=== PATIENT | female | born 1970 | race Hispanic/Latino ===

== ENCOUNTER 2019-01-09 12:01 | Outpatient (CLI) | payer OTHER ==
--- NOTE | 2019-01-09 14:11 | XRay Report ---
LUMBOSACRAL SPINE, FIVE VIEWS: HISTORY: Radiculopathy lumbar region. Normal bone mineralization. There is mild levo curvature to the lumbar spine on the AP image. There is 3 mm retrolisthesis of L2 with respect to L3. There is 4 mm anterolisthesis of L4 with respect L5. This appears to be secondary to degenerative facet arthropathy at both levels. No pars defect is identified. No evidence for compression deformity or bone lesion. There is moderate hypertrophic facet arthropathy throughout the lumbar region. L2-3 and L4-5 are the most affected levels. Flexion and extension views of the lumbar spine demonstrate limited range of motion but no evidence for instability. IMPRESSION: Mild levoscoliosis of the lumbar spine. Multilevel degenerative changes as described. No evidence for instability.
== END 2019-01-09 12:02 | disposition home or self-care (01) ==
LOC: XRAY 12:01
PROVIDERS: ATTEND Physical Medicine & Rehabilitation Pain Medicine
DX: M41.86 Other forms of scoliosis, lumbar region (principal); M47.816 Spondylosis without myelopathy or radiculopathy, lumbar region
CPT/HCPCS: 72110

== ENCOUNTER 2019-06-18 13:46 | Outpatient (CLI) | payer OTHER ==
--- NOTE | 2019-06-18 14:55 | Magnetic Resonance Report ---
MRI LUMBAR SPINE WITHOUT CONTRAST INDICATION / CLINICAL INFORMATION: M54.16 LUMBAR RADICULOPATHY REGION. TECHNIQUE: Multisequence, multiplanar images of the lumbar spine were obtained. COMPARISON: None available. FINDINGS: ALIGNMENT: Normal lumbar lordosis without significant scoliosis. VERTEBRAE:Normal marrow signal and vertebral body height for age. DISC SPACES: There is mild diffuse disc desiccation and mild disc space narrowing at L2-3. FACET JOINTS. Mild to moderate diffuse facet arthropathy. L4-5 appears to be the most affected level. VISUALIZED SPINAL CORD: No significant abnormality. [id number] ANALYSIS: T12-L1: A moderate left paracentral disc protrusion is identified which displaces the anterior thecal sac left side. No central canal stenosis. No neural foraminal narrowing. L1-2: No significant abnormality. L2-3: Mild disc space narrowing. Mild to moderate diffuse posterior bulging disc which lateralizes to the left side. Mild facet arthropathy and hypertrophy ligamentum flavum. There is mild central canal narrowing measuring 9 mm in AP dimension. Left neural foraminal narrowing is estimated at 25-50%. L3-4: No significant abnormality with the disc. Mild facet arthropathy and hypertrophy of the ligamen shelly flavum. No central canal or neural foraminal narrowing. L4-5: No significant abnormality with the disc. Moderate facet hypertrophy and mild thickening of the ligamentum flavum are identified. No central canal narrowing. Bilateral neural foraminal narrowing i s estimated at 25%.. L5-S1: No significant abnormality with the disc. Mild facet arthropathy and hypertrophy of the ligame ntum flavum. No significant central canal narrowing or neural foraminal narrowing PARASPINAL SOFT TISSUES: No significant abnormality. ADDITIONAL FINDINGS: None. IMPRESSION: No acute bony injury or malalignment. Mild to moderate multilevel lumbar spondylosis as described. Moderate left paracentral disc protrusion at T12-L1. Mild central canal narrowing at L2-3. Signer Name: Vadim Aleman Jr, MD Signed: 06/18/2019 2:51 PM Workstation Name: [id number]
== END 2019-06-18 13:47 | disposition home or self-care (01) ==
LOC: MRI 13:46
PROVIDERS: ATTEND Nurse Practitioner Family
DX: M47.26 Other spondylosis with radiculopathy, lumbar region (principal); M48.061 Spinal stenosis, lumbar region without neurogenic claudication; M51.26 Other intervertebral disc displacement, lumbar region
CPT/HCPCS: 72148

== ENCOUNTER 2020-04-03 13:39 | Outpatient (CLI) | payer OTHER ==
--- NOTE | 2020-04-03 14:32 | XRay Report ---
BILATERAL SHOULDERS 6 VIEWS INDICATION / CLINICAL INFORMATION: M75.101 Unspecified rotator cuff tear or rupture of right shoulde. COMPARISON: None available. FINDINGS: Moderate degenerative change in the left glenohumeral joint no other significant skeletal abnormality Signer Name: Isaak Rodney MD FACEstuardo Signed: 04/03/2020 2:28 PM Workstation Name: [id number]
== END 2020-04-03 13:40 | disposition home or self-care (01) ==
LOC: XRAY 13:39
PROVIDERS: ATTEND Physical Medicine & Rehabilitation Pain Medicine
DX: M19.012 Primary osteoarthritis, left shoulder (principal); M75.101 Unspecified rotator cuff tear or rupture of right shoulder, not specified as traumatic